=== PATIENT | male | born 1945 | race Caucasian/White ===

== ENCOUNTER → 2020-04-10 11:01 | Outpatient (CLI) | payer MEDICARE | END | disposition home or self-care (01) | LOC: D.US 11:01 | PROVIDERS: ATTEND Internal Medicine Cardiovascular Disease | DX: I65.23 Occlusion and stenosis of bilateral carotid arteries (principal) ==

== ENCOUNTER → 2020-04-17 09:17 | Outpatient (CLI) | payer MEDICARE | END | disposition home or self-care (01) | LOC: D.CT 09:17 | PROVIDERS: ATTEND Internal Medicine Cardiovascular Disease | DX: I65.21 Occlusion and stenosis of right carotid artery (principal) ==

== ENCOUNTER → 2020-04-18 08:27 | Outpatient (CLI) | payer MEDICARE | END | disposition home or self-care (01) | LOC: D.US 08:27 | PROVIDERS: ATTEND Internal Medicine Cardiovascular Disease | DX: R93.89 Abnormal findings on diagnostic imaging of other specified body structures (principal) ==

== ENCOUNTER 2020-05-02 08:00 | Outpatient (CLI) | payer MEDICARE ==
[2020-05-02] MEDS ORDERED: GEMFIBROZIL600 MG PO (13:15)
[2020-05-02] MEDS ORDERED: LISINOPRIL5 MG PO (13:15)
[2020-05-02] MEDS ORDERED: ASPIRIN81 MG PO (13:16)
[2020-05-02 14:48] LABS: BASOPHILS 0.6 % (0-2); EOSINOPHILS 1.3 % (0-7); HEMATOCRIT 44.4 % (42.0-54.0); HEMOGLOBIN 15.4 g/dL (13.5-17.5); IMMATURE GRANULOCYTES 0.3 % (0-5); LYMPHOCYTES 28.7 % (15-50); MCH 31.4 pg (26.0-34.0); MCHC 34.7 g/dL (31.0-37.0); MCV 90.4 fL (80.0-100.0); MEAN PLATELET VOLUME 10.3 fL (7.4-10.4); MONOCYTES 12.4 % (2-11); NEUTROPHILS 56.7 % (40-80); PLATELET COUNT 264 10x3/uL (130-400); RBC 4.91 10x6/uL (4.20-6.10); RDW 13.1 % (11.5-14.5)
[2020-05-02 14:49] LABS: BILIRUBIN NEGATIVE (NEGATIVE); KETONE NEGATIVE (NEGATIVE); NITRITE NEGATIVE (NEGATIVE); UROBILINOGEN NORMAL mg/dL (< 2)
[2020-05-02 14:58] LABS: APTT 35.8 SECONDS (22.8-39.4); INR 1.03 (0.85-1.17); PROTIME 13.5 SECONDS (11.6-15.0)
[2020-05-02 15:04] LABS: ALBUMIN 4.2 g/dL (3.4-5.0); ANION GAP 11.5 mmol/L (8-16); BILIRUBIN - TOTAL 0.54 mg/dL (0.2-1.3); CALCIUM 8.8 mg/dL (8.5-10.1); CARBON DIOXIDE 26.6 mmol/L (21.0-32.0); CREATININE - SERUM 1.2 mg/dL (0.6-1.3); POTASSIUM - SERUM 4.1 mmol/L (3.5-5.1); PROTEIN - SERUM 7.2 g/dL (6.4-8.2)
[2020-05-13 08:02] VITALS: BMI 32.0
== END 2020-05-02 08:01 | disposition home or self-care (01) ==
LOC: D.PAN 08:00 → D.SDCHOLD 05-06 07:30 → EDSTATUS 05-06 07:30
PROVIDERS: ATTEND Thoracic Surgery (Cardiothoracic Vascular Surgery)
DX: I71.4 Abdominal aortic aneurysm, without rupture (principal)

== ENCOUNTER 2020-05-10 12:19 | Inpatient (IN) | payer MEDICARE ==
[~2020-05-10] VITALS: Ht 180.3 cm; Wt 103.0 kg
[~2020-05-10 12:19] MED LIST: ASPIRIN81 MG PO; GEMFIBROZIL600 MG PO; LISINOPRIL5 MG PO
[2020-05-13] VITALS (18 sets, daily range): BP systolic 109–146; BP diastolic 50–99; BMI 32.0; BMI 31.1
[2020-05-14] VITALS (26 sets, daily range): BP systolic 111–155; BP diastolic 52–84; Ht 180.3 cm; Wt 103.0 kg
[2020-05-14 06:34] LABS: HEMATOCRIT 36.5 % (42.0-54.0); HEMOGLOBIN 12.3 g/dL (13.5-17.5); MCH 30.6 pg (26.0-34.0); MCHC 33.7 g/dL (31.0-37.0); MCV 90.8 fL (80.0-100.0); MEAN PLATELET VOLUME 10.4 fL (7.4-10.4); RBC 4.02 10x6/uL (4.20-6.10); RDW 13.3 % (11.5-14.5); WBC 7.3 10x3/uL (4.8-10.8)
[2020-05-14 06:49] LABS: CALC OSMOLALITY 273 mosm/kg (275-300); CALCIUM 7.9 mg/dL (8.5-10.1); CARBON DIOXIDE 25.8 mmol/L (21.0-32.0); CHLORIDE - SERUM 104 mmol/L (98-107); GLUCOSE 104 mg/dL (74-106); POTASSIUM - SERUM 3.6 mmol/L (3.5-5.1); SODIUM 137 mmol/L (136-145); UREA NITROGEN 12 mg/dL (7-18); eGFR NON AFRICAN AMERICAN 77 mL/min (90-120)
--- NOTE | 2020-05-14 11:49 | NUR ---
0700 REPORT RECIEVED AND CARE ASSUMED OF PATIENT.. SEE FLOW SHEET FOR SHIFT ASSESMENT FINDINGS.. PT IS AWAKE AND ALERT.. NTG TURNED ON BY PLAYERS ASSISTANT NURSE FOR BP OF 148/77 ... OUT OF STATED PARAMETERS,, 0800 BREAKFAST IS SERVED AND FEEDING SELF 0900 MEDS GIVEN [address] GARCIA IN TO SEE PAIENT.. ORDERS RECIEVED 1100 A LINE DCd, VINCENT CATH DCd AND PIV DCd PER ORDER 1120 IN TO SEE PATIENT UPDATE IS GIVEN.. 1140 PHYSICAL THERAPY IN TO AMBULATE AND ASSES 1145 NTG OFF 135/60 PRIOR TO AMBULATION 1150 AMBULATED IN UNIT WITH PT .. THEN TO CHAIR AT BEDSIDE BP 118/61
[2020-05-14] MEDS ORDERED: PERCOCET 5-3251 TAB PO (12:42)
--- NOTE | 2020-05-14 12:50 | OP ---
PATIENT NAME: CARLOS BURGESS MEDICAL RECORD: [id number] :45 [id number] ADMISSION DATE:05/13/20 SURGEON: ISMAEL GARCIA MD DATE OF OPERATION: 05/13/2020 SURGEON: Ismael Garcia MD PROCEDURE PERFORMED: Endovascular repair of abdominal aortic aneurysm with a bifurcated aortic endograft suprarenal extension aortogram times 3, right iliac angiogram and aortic graft angioplasty utilizing percutaneous technique. DIAGNOSIS: Abdominal aortic aneurysm. ANESTHESIA: General. BLOOD LOSS: 50 cc. COMPLICATIONS: None. SPECIMENS: None. CONDITION: Stable. DISPOSITION: ICU. OPERATIVE FINDINGS: 1. Ultrasound guided percutaneous access of both femoral arteries. 2. Bifurcated 28 x 90 main body and then 34 suprarenal extension 80 in length. Good placement of the proximal end and no endoleak on the completion arteriogram. No obstruction after the right percutaneous closure. PROCEDURE IN DETAIL: The patient was brought to the operating suite. General anesthesia was obtained, the patient was prepped and draped. Ultrasound-guided access of both groins was performed and 6-[place] sheaths were inserted on the right and 7 on the left. On the right, 2 ProGlide devices were pre-deployed and then an 8-[place] sheath was placed. Guidewire, exchange catheter and then a stiff wire on the right was placed. On the left, a snare catheter was placed. On the right, the introducer was placed within the main body. Contralateral wire was snared and brought to the left side. The device was placed on the bifurcation. Main body was deployed. The left side was deployed. The left wire was detached and the pigtail was placed for angiogram and the right limb was deployed. Main body was passed back into the aorta. The suprarenal extension was loaded and brought to the appropriate site. Then, an arteriogram was performed. The extension was partially deployed. A second arteriogram was performed. The device was landed carefully. Coda balloon was used for aortic graft angioplasty and right iliac angioplasty. Completion arteriogram was normal. After that, the pigtail was brought down to the bifurcation, stiff wire exchanged for soft wire, right percutaneous closure and on the left an Angio-Seal device closure. No apparent complications. Doppler pulses. The patient to ICU stable. TRANSINT:[id number] Voice Confirmation ID: [id number] DOCUMENT ID: [id number] OPERATIVE REPORT [id number] CARLOS BURGESS DANIEL W MD at 1250 CC: MOUNIKA AGUDELO [id number] DICTATION DATE: 05/13/20 1414 JOINER: 05/13/20 2311 ADM IN [facility] [address] [id number]
--- NOTE | 2020-05-14 14:44 | NUR ---
1200 IN TO SEE PATIENT LUNCH SERVED PT SITTING IN CHAIR AT THE BEDSIDE FEEDING SELF.. 1249 DR JOY IN TO SEE PATIENT.. 1332 ZINACEF ANTIBIOTIC OFF AT THIS TIME.. 1430 CVL RIGHT IJ DCd .. 1445 PT DC PAPERS REVIEWED AND SIGNED BY PATIENT
--- NOTE | 2020-05-14 15:16 | NUR ---
1500 TRANSPORTED TO [facility] VIA WHEELCHAIR FOR TRANSPORT HOME IN PVT CAR WITH
== END 2020-05-14 15:00 | disposition home or self-care (01) | DRG 269 ==
LOC: D.SDCHOLD 05-13 07:00 → D.CVICU 05-13 07:00 → D.SDCHOLD 05-13 07:30 → D.CVICU 05-13 12:37
PROVIDERS: ADMIT Thoracic Surgery (Cardiothoracic Vascular Surgery); ATTEND Thoracic Surgery (Cardiothoracic Vascular Surgery)
PROC: 04V03DZ Restriction of Abdominal Aorta with Intraluminal Device, Percutaneous Approach (ICD-10-PCS; principal; 2020-05-13 09:00)
DX: I71.4 Abdominal aortic aneurysm, without rupture (principal); I10 Essential (primary) hypertension; Z72.0 Tobacco use

== ENCOUNTER → 2020-06-04 09:39 | Outpatient (CLI) | payer MEDICARE ==
[2020-05-14 10:17] VITALS: BMI 31.6
[~2020-06-04 09:39] MED LIST changes: +PERCOCET 5-3251 TAB PO
== END | disposition home or self-care (01) ==
LOC: D.CT 09:39
PROVIDERS: ATTEND Thoracic Surgery (Cardiothoracic Vascular Surgery)
DX: I71.4 Abdominal aortic aneurysm, without rupture (principal)

== ENCOUNTER → 2020-11-01 11:36 | Outpatient (CLI) | payer MEDICARE ==
[2020-05-14 10:17] VITALS: BMI 31.6
== END | disposition home or self-care (01) ==
LOC: D.CT 11:36
PROVIDERS: ATTEND Thoracic Surgery (Cardiothoracic Vascular Surgery)
DX: I71.4 Abdominal aortic aneurysm, without rupture (principal)

== ENCOUNTER 2020-11-13 08:00 | Outpatient (CLI) | payer MEDICARE ==
[2020-05-14 10:17] VITALS: BMI 31.6
== END 2020-11-13 08:01 | disposition home or self-care (01) ==
LOC: D.CT 08:00
PROVIDERS: ATTEND Thoracic Surgery (Cardiothoracic Vascular Surgery)
DX: I71.4 Abdominal aortic aneurysm, without rupture (principal)